=== PATIENT | male | born 1995 | race Caucasian/White ===

== ENCOUNTER 2018-11-25 19:10 | Emergency (ER) | payer OTHER ==
[~2018-11-25] VITALS: Ht 167.6 cm; Wt 72.6 kg
[2018-11-25 19:28] VITALS: BP 146/89; Ht 167.6 cm; Wt 72.6 kg
== END 2018-11-25 20:04 | disposition other institution (70) ==
LOC: ED 19:10
DX: Z02.89 Encounter for other administrative examinations (principal)